=== PATIENT | female | born 1995 | race Caucasian/White ===

== ENCOUNTER 2024-08-27 15:41 | Emergency (ER) | payer OTHER ==
[2024-08-27 15:56] VITALS: RESP 16; TEMP 98.2; BMI 23.0
[2024-08-27 17:54] LABS: EPI CELLS 13 /uL (0-25.1); HYALINE CASTS 0 /uL (0-3.1); URINE APPEARANCE CLOUDY; URINE BACTERIA >9,000 /uL (0-1359); URINE BILIRUBIN NEGATIVE (NEGATIVE); URINE COLOR YELLOW; URINE GLUCOSE (UA) NEGATIVE (NEGATIVE); URINE KETONE NEGATIVE (NEGATIVE); URINE LEUK ESTERASE TRACE (NEGATIVE); URINE NITRITE POSITIVE (NEGATIVE); URINE PROTEIN NEGATIVE (NEGATIVE); URINE RBC 11 /uL (0-23.9); URINE UROBILINOGEN 0.2 mg/dL (0.2-1.0); URINE WBC 12 /uL (0-25.8)
[2024-08-27] MEDS ORDERED: ONDANSETRON 4 MG/2 ML VIAL ONE (17:56)
[2024-08-27 18:19] LABS: ABSOLUTE IMMATURE GRANULOCYTES 0.03 x10^3/uL (0.0-0.031); BASOPHILS # 0.03 x10^3/uL (0.01-0.08); EOSINOPHIL % 1.4 % (0.7-5.8); EOSINOPHILS # 0.15 x10^3/uL (0.04-0.36); HEMATOCRIT 34.3 % (34.1-44.9); HEMOGLOBIN 10.5 g/dL (11.2-15.7); MCHC 30.6 g/dl (32.2-35.5); MEAN PLT VOLUME 10.7 fl (9.4-12.3); MONOCYTE % 8.2 % (4.7-12.5); PLATELET COUNT 350 x10^3/uL (182-369)
[2024-08-27] MEDS: ONDANSETRON 4 MG/2 ML VIAL IVPUSH ONE (18:23)
[2024-08-27] MEDS: SODIUM CHLORIDE 0.9% 500 ML INFUS.BAG IV ONE (18:23)
[2024-08-27 18:36] LABS: POTASSIUM 3.8 mmol/L (3.5-5.1)
[2024-08-27 18:38] LABS: ALBUMIN 3.4 g/dl (3.4-5.0); BLOOD UREA NITROGEN 8.1 mg/dL (7-18); CALCIUM 9.5 mg/dL (8.5-10.1)
[2024-08-27 18:41] VITALS: BP 136/87; PULSE 91
[2024-08-27 18:42] LABS: CREATININE 0.5 mg/dL (0.55-1.3)
[2024-08-27 18:43] LABS: BILIRUBIN,TOTAL 0.2 mg/dL (0.2-1); TOT PROT 7.2 g/dl (6.4-8.2)
[2024-08-27] MEDS ORDERED: CEPHALEXIN MONOHYDRATE 500 MG CAPSULE (UD) PO ONE (20:34)
== END 2024-08-27 20:55 | disposition home or self-care (01) ==
LOC: JER 15:41
PROC: 3E033GC Introduction of Other Therapeutic Substance into Peripheral Vein, Percutaneous Approach (ICD-10-PCS; principal; 2024-08-27)
DX: O23.41 Unspecified infection of urinary tract in pregnancy, first trimester (principal); O20.9 Hemorrhage in early pregnancy, unspecified; Z3A.01 Less than 8 weeks gestation of pregnancy
CPT/HCPCS: 36415; 76817-TC; 80053; 81003; 84702; 85025; 86850; 86900; 86901; 87086; 87186; 99284-25